=== PATIENT | male | born 1950 | race Two or more races ===

== ENCOUNTER 2024-01-26 16:42 | Emergency (ER) | payer OTHER, BC ==
[~2024-01-26] VITALS: Ht 180.3 cm; Wt 86.2 kg
[2024-01-26] MEDS ORDERED: NAMENDA1 EACH (17:42)
[2024-01-26] MEDS ORDERED: JANUVIA25 MG (17:42)
[2024-01-26] MEDS ORDERED: TOPROL XL50 M1 (17:42)
[2024-01-26] MEDS ORDERED: METFORMIN HCL500 M3 (17:42)
[2024-01-26] MEDS ORDERED: GLIMEPIRIDE1 MG (17:42)
[2024-01-26] MEDS ORDERED: RESTORIL15 M1 (17:43)
[2024-01-26] MEDS ORDERED: [UNRECOGNIZED DRUG - OTHER] (17:43)
[2024-01-26 18:53] LABS: HEMATOCRIT 45.3 % (39.0-48.0); HEMOGLOBIN 14.9 g/dL (13-16.00); MEAN CELL VOLUME 85.3 fL (80.0-100.00); MEAN CORPUSCULAR HEMOGLOBIN 28.1 pg (27.00-32.0); MEAN CORPUSCULAR HGB CONC 32.9 g/dl (32.0-36.0); PLATELET COUNT 196 K/uL (150-450); RED BLOOD COUNT 5.31 M/uL (4.00-6.00); RED CELL DISTRIBUTION WIDTH 14.9 % (11.5-14.5)
[2024-01-26 19:04] LABS: URINE APPEARANCE Clear; URINE BILIRRUBIN Negative (NEGATIVE); URINE BLOOD Negative; URINE COLOR Yellow; URINE LEUKOCYTE Negative; URINE NITRATE Negative; URINE PROTEIN Negative (NEGATIVE); URINE UROBILINOGEN 0.2 E.U./dl
[2024-01-26 19:07] LABS: URINE BACTERIA 16.3 uL (0.0-1933); URINE EPITHELIAL CELLS 4.7 uL (0.0-38.8); URINE RBC 2.1 uL (0.0-20.8); URINE WBC 5.2 uL (0.0-23.2)
[2024-01-26 19:28] LABS: ALBUMIN 4.1 gm/dL (3.4-5.0); BILIRUBIN TOTAL 0.69 mg/dL (0.3-1.2); CALCIUM 9.7 mg/dL (8.5-10.1); CREATININE SERUM 1.53 mg/dL (0.70-1.30); GFR 45.09; GLOBULINA 3.3 G/DL (2.4-3.5); POTASSIUM 4.23 mEq/L (3.5-5.1); TOTAL PROTEIN 7.4 gm/dL (6.4-8.2)
[2024-01-26 19:30] LABS: URINE GLUCOSE >=1000 MG/DL (NEGATIVE); URINE SPERM FEW
== END 2024-01-26 20:06 ==
LOC: ER 16:43
PROVIDERS: Nurse Practitioner Family
DX: T66.XXXA Radiation sickness, unspecified, initial encounter (principal); X32.XXXA Exposure to sunlight, initial encounter; Y93.89 Activity, other specified; Y92.832 Beach as the place of occurrence of the external cause; Y99.9 Unspecified external cause status; E11.9 Type 2 diabetes mellitus without complications; Z79.84 Long term (current) use of oral hypoglycemic drugs; G30.9 Alzheimer's disease, unspecified; F02.80 Dementia in other diseases classified elsewhere, unspecified severity, without behavioral disturbance, psychotic disturbance, mood disturbance, and anxiety